=== PATIENT | male | born 1960 | race Caucasian/White ===

== ENCOUNTER → 2017-08-28 | Outpatient (CLI) | payer OTHER | END | disposition home or self-care (01) | LOC: CT 12:45 | DX: R51 Headache (principal) ==

== ENCOUNTER 2017-10-10 15:18 | Inpatient (IN) | payer OTHER ==
[~2017-10-10] VITALS: Ht 182.9 cm; Wt 65.5 kg
--- NOTE | ~2017-10-10 | CON ---
[place], [place] REPORT OF CONSULTATION NAME: BETY CORONADO UNIT #: [id number] ROOM: [place] [address] DOCTOR: JOSE JONES MD BIRTHDATE: [birth year] DOS: 10/11/2017 CHIEF COMPLAINT: "I am okay. I don't need anything." HISTORY OF PRESENT ILLNESS: This is a 57-year-old white male who presented to the emergency room at [facility] acutely intoxicated with extreme dizziness. The patient's brother and sister called EMS and reported that he has been in an intoxicated state for 4 days straight. He drinks approximately one half to a whole fifth of hard liquor daily and has been doing so for some time. The patient was making some vague suicidal comments at this point, stating that he was going to get his gun; however, his brother has already taken away his pistol and hid it from him. Now as the patient is sobering up, he denies depression. He denies sleep or appetite issues. He convincingly denies suicidal thoughts, homicidal thoughts or any self-injurious thoughts. He also states he does not want any help for his alcohol issues and prefers to be able to go home when he is released. MENTAL STATUS: He is alert and oriented. He has a great deal of processing slowness and he has not always on target with his answers. There is some level of confusion, how much of this is residual. His last alcohol level was still high at 33. IMPRESSION: Acute delirium. PLAN: I will go ahead and check a serum ammonia level, a vitamin D level, a vitamin B12 level and recheck a serum alcohol level. At this point, unless something changes, I do not see him requiring further psychiatric intervention unless he chooses to come to the unit to begin treatment for the alcohol issues. JOSE JONES MD CM:CONSTR:REPORT OF CONSULTATION 1100 10/11/17 1245 interface
--- NOTE | ~2017-10-10 | CON ---
[place], [place] REPORT OF CONSULTATION NAME: BETY CORONADO UNIT #: [id number] ROOM: [place] [address] DOCTOR: HANK LOPEZ ED.D (MARIO) BIRTHDATE: [birth year] DOS: 10/11/2017 The patient is a 57-year-old male referred after he threatened to harm himself. He came to the emergency department and was quite intoxicated, his blood alcohol level over 390. 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 His medical history is pertinent for alcohol dependence and hypertension. He states he drinks one half of one fifth of alcohol each day, mostly drinking Black Velvet. He states that he does not want to quit drinking and does not want to go into any type of rehabilitation program or detox program. He has been pink slipped to the emergency department and once his blood alcohol level is normal and he continues to deny any suicidal ideation, he could be released home. Again, he requests no help and states he does not want to quit drinking. DIAGNOSIS: Alcohol dependence. RECOMMENDATIONS: The patient should consider inpatient or outpatient rehabilitation plus detoxification. Thank you very much for this consult. HANK LOPEZ ED.D CM:CONSTR:REPORT OF CONSULTATION 1401 10/11/17 1427 interface
[2017-10-10 15:20] VITALS: BP 160/106
[2017-10-10] MEDS ORDERED: Lopressor25 MG PO (15:24)
[2017-10-10 16:17] LABS: BASO # 0.1 10*3/uL (0.0-0.1); BASO % 1.2 % (0.0-1.0); EOS % 0.4 % (1.0-4.0); HEMATOCRIT 47.6 % (42.0-52.0); HEMOGLOBIN 16.7 g/dl (14.0-18.0); LYMPH # 1.2 10*3/uL (1.3-4.4); MEAN CELL VOLUME 101.3 fl (80.0-94.0); MEAN CORPUSCULAR HGB 35.5 pg (27.0-31.0); MEAN CORPUSCULAR HGB CONC 35.1 g/dl (33.0-37.0); MONO # 0.6 10*3/uL (0.1-1.0); MONO % 12.9 % (3.0-9.0); NEUT # 2.9 10*3/uL (2.3-7.9); NEUT % 60.3 % (47.0-73.0); PLATELET COUNT AUTOMATED 255 10*3/uL (130-400); RED CELL DISTRI WIDTH 13.3 % (0-14.5); WHITE BLOOD COUNT 4.9 10*3/uL (4.8-10.8)
[2017-10-10 16:26] LABS: ACT PARTIAL THROMBO TIME 25.6 SECONDS (20.8-31.5); INTERNATIONAL NORM RATIO 0.9 (2.0-3.5)
[2017-10-10 16:36] LABS: ALKALINE PHOSPHATASE 137 U/L (45-117); BUN 11 mg/dl (7-24); CHLORIDE 102 mmol/L (98-107); CREATININE 0.79 mg/dL (0.70-1.30); POTASSIUM 4.3 mmol/L (3.5-5.1); SGOT/AST 188 IU/L (3-35); SGPT/ALT 184 U/L (12-78); SODIUM 142 mmol/L (136-145); TOTAL PROTEIN 7.5 gm/dL (6.4-8.2)
[2017-10-10 19:39] VITALS: BP 122/54
[2017-10-10 21:11] VITALS: BP 151/93
[2017-10-11 02:02] LABS: BILIRUBIN NEGATIVE (NEGATIVE); BLOOD TRACE-LYSED (NEGATIVE); CLARITY SL CLOUDY (CLEAR); COLOR YELLOW (YELLOW); GLUCOSE NEGATIVE (NEGATIVE); KETONE 1+ (NEGATIVE); LEUKO ESTERASE NEGATIVE (NEGATIVE); NITRITE NEGATIVE (NEGATIVE); PH 5.5 (5.0-9.0); SPECIFIC GRAVITY >= 1.030 (1.005-1.030); UROBILINOGEN 0.2 E.U./dl (0.2-1.0)
[2017-10-11 02:11] LABS: URINE AMPHETAMINES < 1000 (1000ng/ml); URINE BARBITURATES < 200 (200ng/ml); URINE BENZODIAZEPINES < 200 (200ng/ml); URINE CANNABINOIDS (THC) < 50 (50ng/ml); URINE COCAINE < 300 (300ng/ml); URINE METHADONE < 300 (300ng/ml); URINE OPIATES < 300 (300ng/ml); URINE PHENCYCLIDINE < 25 (25ng/ml)
[2017-10-11 02:13] LABS: MUCOUS TRACE; RBC 0-2 rbc/hpf (0-2); WBC 0-2 wbc/hpf (0-5)
[2017-10-11 04:26] LABS: BUN 16 mg/dl (7-24); CHLORIDE 100 mmol/L (98-107); CREATININE 0.88 mg/dL (0.70-1.30); POTASSIUM 3.8 mmol/L (3.5-5.1); SODIUM 140 mmol/L (136-145)
[2017-10-11 06:50] VITALS: BP 138/90
[2017-10-11 12:00] VITALS: BP 130/82
[2017-10-11 12:53] LABS: VITAMIN D, 25-HYDROXY 36.3 ng/mL (30-100)
== END 2017-10-11 15:45 | disposition left against medical advice (07) | DRG 894 ==
LOC: ED 15:18 → EDHOLD 10-11 06:27 → ICCU 10-11 06:27
PROVIDERS: Emergency Medicine; Emergency Medicine Emergency Medical Services; Psychiatry & Neurology Psychiatry
DX: F10.231 Alcohol dependence with withdrawal delirium (principal); R45.851 Suicidal ideations; R65.10 Systemic inflammatory response syndrome (SIRS) of non-infectious origin without acute organ dysfunction; E83.41 Hypermagnesemia; F10.229 Alcohol dependence with intoxication, unspecified; F32.9 Major depressive disorder, single episode, unspecified; Z53.21 Procedure and treatment not carried out due to patient leaving prior to being seen by health care provider; R74.0 Nonspecific elevation of levels of transaminase and lactic acid dehydrogenase [LDH]; I10 Essential (primary) hypertension; R73.9 Hyperglycemia, unspecified; Z72.0 Tobacco use; Z71.6 Tobacco abuse counseling; Z79.899 Other long term (current) drug therapy

== ENCOUNTER → 2018-05-22 | Outpatient (CLI) | payer OTHER ==
[~2018-05-22] MED LIST: Lopressor25 MG PO
[2018-05-22 09:27] LABS: ALBUMIN 4.2 gm/dl (3.1-4.5); CREATININE 1.67 mg/dL (0.70-1.30); POTASSIUM 3.6 mmol/L (3.5-5.1)
[2018-05-22 09:40] LABS: DIGOXIN 0.48 ng/ml (0.8-2.0); TOTAL PROTEIN 7.3 gm/dL (6.4-8.2)
== END | disposition home or self-care (01) ==
LOC: LAB 07:24 → CARD 07:30
PROVIDERS: Internal Medicine Cardiovascular Disease
DX: Z12.5 Encounter for screening for malignant neoplasm of prostate (principal); I35.8 Other nonrheumatic aortic valve disorders; I11.9 Hypertensive heart disease without heart failure; F10.10 Alcohol abuse, uncomplicated; E78.00 Pure hypercholesterolemia, unspecified

== ENCOUNTER → 2018-06-22 | Outpatient (CLI) | payer OTHER ==
[2018-06-22 14:18] LABS: BUN 12 mg/dl (7-24); CHLORIDE 103 mmol/L (98-107); CREATININE 0.99 mg/dL (0.70-1.30); POTASSIUM 4.1 mmol/L (3.5-5.1); SODIUM 138 mmol/L (136-145)
== END | disposition home or self-care (01) ==
LOC: LAB 13:47
PROVIDERS: Internal Medicine Cardiovascular Disease
DX: I10 Essential (primary) hypertension (principal)

== ENCOUNTER → 2019-07-31 | Outpatient (CLI) | payer OTHER ==
[2019-07-31 15:52] LABS: ALBUMIN 4.1 gm/dl (3.1-4.5); ALKALINE PHOSPHATASE 79 U/L (45-117); BUN 10 mg/dl (7-24); CHLORIDE 101 mmol/L (98-107); CHOLESTEROL 164 mg/dL (<200); CREATININE 0.88 mg/dL (0.70-1.30); HDL CHOLESTEROL 60 mg/dl (40-60); LDL CHOLESTEROL 86 mg/dL (9-159); POTASSIUM 4.1 mmol/L (3.5-5.1); SGOT/AST 14 IU/L (3-35); SGPT/ALT 26 U/L (12-78); SODIUM 136 mmol/L (136-145); TOTAL PROTEIN 6.9 gm/dL (6.4-8.2); TRIGLYCERIDES 89 mg/dl (<150); VLDL CHOLESTEROL 18 mg/dL (6-40)
== END | disposition home or self-care (01) ==
LOC: LAB 14:18 → CARD 15:00
PROVIDERS: Registered Nurse Flight
DX: I51.9 Heart disease, unspecified (principal); E78.00 Pure hypercholesterolemia, unspecified

== ENCOUNTER → 2020-04-29 | Outpatient (CLI) | payer OTHER | END | disposition home or self-care (01) | LOC: RAD 11:52 | DX: R30.0 Dysuria (principal) ==

== ENCOUNTER → 2020-05-10 | Outpatient (CLI) | payer OTHER ==
[2020-05-10 08:01] LABS: CREATININE 0.89 mg/dL (0.70-1.30)
== END | disposition home or self-care (01) ==
LOC: LAB 07:30 → CT 08:00
PROVIDERS: Registered Nurse Flight
DX: K57.30 Diverticulosis of large intestine without perforation or abscess without bleeding (principal)

== ENCOUNTER → 2021-01-05 | Outpatient (CLI) | payer OTHER | END | disposition home or self-care (01) | LOC: MRI 12:29 | PROVIDERS: ATTEND Internal Medicine | DX: M48.07 Spinal stenosis, lumbosacral region (principal); M51.27 Other intervertebral disc displacement, lumbosacral region; M47.817 Spondylosis without myelopathy or radiculopathy, lumbosacral region ==

== ENCOUNTER → 2022-06-29 | Outpatient (CLI) | payer OTHER | END | disposition home or self-care (01) | LOC: RAD 10:41 | PROVIDERS: ATTEND Internal Medicine | DX: M25.551 Pain in right hip (principal) ==

== ENCOUNTER 2025-03-05 23:19 | Inpatient (IN) | payer SELFPAY ==
[~2025-03-05] VITALS: Ht 177.8 cm; Wt 72.6 kg
[2025-03-05] MEDS ORDERED: SODIUM CHLORIDE 0.9% 1,000 ML IV ONE ×2 (23:30)
[2025-03-05 23:31] VITALS: BP 146/96
[2025-03-06 01:00] LABS: HEMATOCRIT 51.1 % (42.0-52.0); MEAN CELL VOLUME 100.6 fl (80.0-94.0); MEAN CORPUSCULAR HGB 35.6 pg (27.0-31.0); MEAN CORPUSCULAR HGB CONC 35.4 g/dl (33.0-37.0); MEAN PLATELET VOLUME 8.9 fl (9.6-12.3); PLATELET COUNT AUTOMATED 382 10*3/uL (130-400); RED BLOOD COUNT 5.08 10*6/uL (4.50-5.90); RED CELL DISTRI WIDTH 12.3 % (0-14.5); WHITE BLOOD COUNT 19.6 10*3/uL (4.8-10.8)
[2025-03-06 01:16] LABS: MANUAL DIFF REFLEX YES
[2025-03-06 01:18] LABS: PLATELET SUFFICIENCY NORMAL (NORMAL); TOTAL CELLS COUNTED 100 #CELLS
[2025-03-06 01:29] LABS: ALKALINE PHOSPHATASE 61 U/L (46-116); BUN 48 mg/dl (9-23); CHLORIDE 98 mmol/L (98-107); SGPT/ALT 68 U/L (5-49); TOTAL PROTEIN 6.5 gm/dL (6.0-8.0)
[2025-03-06 01:36] LABS: CPK 3392 U/L (34-171); ETHYL ALCOHOL < 3.0 mg/dl (<3)
[2025-03-06] MEDS ORDERED: Piperacillin Sodium/Tazobact 50 ML IV ONE (02:05)
[2025-03-06 02:22] VITALS: BP 128/81
[2025-03-06] MEDS ORDERED: Acetaminophen/Hydrocodone 5 MG/325 MG TABLET PO PRN (03:25)
[2025-03-06] MEDS ORDERED: Ondansetron Hydrochloride 4 MG/2 ML VIAL IV PRN (03:25)
[2025-03-06] MEDS ORDERED: ACETAMINOPHEN 650 MG SUPP R PRN (03:25)
[2025-03-06] MEDS ORDERED: ACETAMINOPHEN 325 MG TAB PO PRN (03:25)
[2025-03-06] MEDS ORDERED: BISACODYL 10 MG SUPP R PRN (03:25)
[2025-03-06] MEDS ORDERED: Magnesium Hydroxide 30 ML UDC PO PRN (03:25)
[2025-03-06] MEDS ORDERED: BISACODYL 5 MG TAB PO PRN (03:25)
[2025-03-06] MEDS ORDERED: Dicyclomine Hydrochloride 20 MG TAB PO PRN (03:30)
[2025-03-06] MEDS ORDERED: FOLIC ACID 1 MG TAB PO ONE (03:30)
[2025-03-06] MEDS ORDERED: METHOCARBAMOL 750 MG TAB PO PRN (03:30)
[2025-03-06] MEDS ORDERED: hydrOXYzine 50 MG CAP PO PRN (03:30)
[2025-03-06] MEDS ORDERED: Water, Sterile 10 ML VIAL IV PRN ×2 (03:30→11:50)
[2025-03-06] MEDS ORDERED: LORazepam 2 MG/ML VIAL IV PRN (03:30)
[2025-03-06] MEDS ORDERED: SODIUM CHLORIDE 0.9% 1,000 ML IV SCH (03:35)
[2025-03-06] MEDS ORDERED: Lidocaine Hydrochloride 10 ML SYR UR ONE (03:45)
[2025-03-06] MEDS ORDERED: ASPIRIN 325 MG ENTERIC COATED PO ONE (03:55)
[2025-03-06 04:17] LABS: BILIRUBIN 2+ (Negative); BLOOD Trace-Lysed (Negative); CLARITY Turbid (Clear); COLOR Red (Yellow); GLUCOSE Negative (Negative); KETONE Trace (Negative); LEUKO ESTERASE 3+ (Negative); NITRITE Positive (Negative); UROBILINOGEN 0.2 E.U./dl (0.0-1.0)
[2025-03-06 04:32] LABS: BACTERIA 2+; RBC TNTC rbc/hpf (0-2)
[2025-03-06 05:01] VITALS: BP 122/83
[2025-03-06] MEDS ORDERED: Thiamine 200 MG/2 ML VIAL IV SCH ×2 (06:00→08:10)
[2025-03-06 06:07] LABS: BASO % 0.1 % (0.0-1.0); EOS # 0.1 10*3/uL (0.0-0.4); EOS % 0.5 % (1.0-4.0); HEMATOCRIT 51.5 % (42.0-52.0); MEAN CELL VOLUME 101.8 fl (80.0-94.0); MEAN CORPUSCULAR HGB 35.2 pg (27.0-31.0); MEAN CORPUSCULAR HGB CONC 34.6 g/dl (33.0-37.0); MEAN PLATELET VOLUME 9.7 fl (9.6-12.3); MONO # 1.4 10*3/uL (0.1-1.0); MONO % 7.7 % (3.0-9.0); NEUT # 15.7 10*3/uL (2.3-7.9); NEUT % 87.8 % (47.0-73.0); PLATELET COUNT AUTOMATED 368 10*3/uL (130-400); RED BLOOD COUNT 5.06 10*6/uL (4.50-5.90); RED CELL DISTRI WIDTH 12.3 % (0-14.5); WHITE BLOOD COUNT 17.9 10*3/uL (4.8-10.8)
[2025-03-06 06:34] LABS: ACT PARTIAL THROMBO TIME 30.7 SECONDS (20.0-32.1)
[2025-03-06 06:35] VITALS: BP 120/82
[2025-03-06 06:43] LABS: FREE T4 0.94 ng/dl (0.89-1.76); POTASSIUM 3.5 mmol/L (3.4-5.1); TOTAL PROTEIN 6.3 gm/dL (6.0-8.0)
[2025-03-06 07:06] LABS: VITAMIN D, 25-HYDROXY 34.8 ng/mL (30-100)
[2025-03-06] MEDS ORDERED: DIGOXIN125 MCG PO (07:16)
[2025-03-06] MEDS ORDERED: COREG6.25 MG PO (07:16)
[2025-03-06] MEDS ORDERED: IMDUR SA30 MG PO (07:17)
[2025-03-06] MEDS ORDERED: ZESTORETIC 10-1 EACH PO (07:17)
[2025-03-06] MEDS ORDERED: PRAVASTATIN SOD40 MG PO (07:17)
[2025-03-06 08:13] VITALS: BP 141/83
[2025-03-06] MEDS ORDERED: Piperacillin Sodium/Tazobact 50 ML IV SCH (08:19)
[2025-03-06] MEDS ORDERED: Metoprolol Tartrate 25 MG TAB PO SCH ×2 (10:00→22:00)
[2025-03-06] MEDS ORDERED: ASPIRIN ENTERIC COATED 81 MG TAB PO SCH (10:00)
[2025-03-06] MEDS ORDERED: MULTIVITAMIN 1 TAB TAB PO SCH (10:00)
[2025-03-06] MEDS ORDERED: VANCOMYCIN HCL 1,250 MG in SODIUM CHLORIDE 0.9% 250 ML IV SCH (10:00)
[2025-03-06] MEDS ORDERED: ATORVASTATIN CALCIUM 40 MG TABLET PO SCH (10:00)
[2025-03-06] MEDS ORDERED: Enoxaparin Sodium 40 MG/0.4 ML SYR SC SCH (10:00)
[2025-03-06 11:01] VITALS: BP 154/90
[2025-03-06] MEDS ORDERED: LORazepam 1 MG TAB PO SCH (12:00)
[2025-03-06 15:27] VITALS: BP 105/69
[2025-03-06] MEDS ORDERED: MUPIROCIN 15 GM TUBE T SCH (22:00)
[2025-03-07] MEDS ORDERED: LORazepam 1 MG TAB PO SCH (14:00)
[2025-03-08] MEDS ORDERED: LORazepam 1 MG TAB PO PRN
== END 2025-03-06 17:03 | disposition short-term general hospital (02) | DRG 871 ==
LOC: ED 23:19 → EDHOLD 03-06 02:30
PROVIDERS: Emergency Medicine; Student in an Organized Health Care Education/Training Program; ADMIT Student in an Organized Health Care Education/Training Program; ATTEND Student in an Organized Health Care Education/Training Program
PROC: 5A09357 Assistance with Respiratory Ventilation, Less than 24 Consecutive Hours, Continuous Positive Airway Pressure (ICD-10-PCS; principal; 2025-03-06)
DX: A41.9 Sepsis, unspecified organism (principal); G93.41 Metabolic encephalopathy; J69.0 Pneumonitis due to inhalation of food and vomit; N17.0 Acute kidney failure with tubular necrosis; J96.01 Acute respiratory failure with hypoxia; I21.A1 Myocardial infarction type 2; M62.82 Rhabdomyolysis; E87.20 Acidosis, unspecified; E87.1 Hypo-osmolality and hyponatremia; N30.01 Acute cystitis with hematuria; E78.5 Hyperlipidemia, unspecified; I11.0 Hypertensive heart disease with heart failure; I50.9 Heart failure, unspecified; F12.10 Cannabis abuse, uncomplicated; L89.100 Pressure ulcer of unspecified part of back, unstageable; S40.212A Abrasion of left shoulder, initial encounter; L89.892 Pressure ulcer of other site, stage 2; R65.20 Severe sepsis without septic shock; G90.9 Disorder of the autonomic nervous system, unspecified; R73.9 Hyperglycemia, unspecified; R74.01 Elevation of levels of liver transaminase levels; F17.210 Nicotine dependence, cigarettes, uncomplicated; N13.9 Obstructive and reflux uropathy, unspecified; F10.10 Alcohol abuse, uncomplicated; Z79.899 Other long term (current) drug therapy; Z79.2 Long term (current) use of antibiotics; W18.39XA Other fall on same level, initial encounter; Y93.89 Activity, other specified; Y92.89 Other specified places as the place of occurrence of the external cause; Y99.8 Other external cause status; Z71.6 Tobacco abuse counseling; Y90.9 Presence of alcohol in blood, level not specified

== ENCOUNTER 2025-05-03 21:03 | Emergency (ER) | payer MEDICAID ==
[~2025-05-03] VITALS: Ht 180.3 cm; Wt 74.4 kg
[~2025-05-03 21:03] MED LIST changes: +COREG6.25 MG PO; +DIGOXIN125 MCG PO; +IMDUR SA30 MG PO; +PRAVASTATIN SOD40 MG PO; +ZESTORETIC 10-1 EACH PO
== END 2025-05-03 23:24 ==
LOC: ED 21:03
DX: T18.128A Food in esophagus causing other injury, initial encounter (principal); I10 Essential (primary) hypertension; F17.210 Nicotine dependence, cigarettes, uncomplicated; Z98.890 Other specified postprocedural states; W44.F3XA Food entering into or through a natural orifice, initial encounter; Y93.89 Activity, other specified; Y92.89 Other specified places as the place of occurrence of the external cause; Y99.8 Other external cause status